=== PATIENT | female | born 1995 | race Caucasian/White ===

== ENCOUNTER 2020-08-13 22:31 | Emergency (ER) | payer MEDICAID, SELFPAY ==
--- NOTE | 2020-08-13 22:51 | ED.GENADUL_ITS ---
Discharge Plan Disposition Patient Disposition: HOME Condition: Stable Discharge Details Clinical Impression: UTI (urinary tract infection), Creatinine elevation Primary Care Provider: Unknown,Unknown ED Provider: Yakelin Wyman Home Meds and New Rx's Prescriptions: New ciprofloxacin HCl [Cipro] 250 mg tablet 250 mg PO BID 2 Days Qty: 4 RF: 0 Continued ZUK-hjxf-OV-omega 3-fat com #1 27-1-300 mg Capsule 1 cap PO DAILY RF: 0 Discharge Instructions Instructions: Ciprofloxacin (By mouth), Urinary Tract Infection in Women (ED) Additional Instructions: You are not currently . However, your work-up today is concerning for urinary tract infection. Please take the antibiotics as prescribed. Even if symptoms improve, please take the entire course. Please call [facility] wellness tomorrow to schedule follow-up appointment to discuss continued care. Referral for local primary care has also been sent. If you develop fever/chills, increased abdominal discomfort or other new/worsening symptoms please seek care urgently once again. Referrals: Maria G Palomino MD [ [facility] STAFF PHYSICIAN] - Discharge Data Discharge Date/Time-TO BE ENTERED AT DEPARTURE: 08/14/20 00:45 Medical Decision Making Patient is a pleasant 24-year-old female, , estimated 2 months gestation, presenting today with c/c of cramping and vaginal bleeding. Three previous spontaneous abortions. Patient does not receive routine obstetrical care and has never had a Pap smear before. States that she began having some spotting 2 days ago. Had 1 brief episode lasting proxy 1 hour where she had increased bleeding, similar to my period. Unknown LMP. At most, patient states that she changed her pad twice throughout the day. She denies any fevers or chills. Denies any nausea or vomiting. No change in bowel habits. Reports increased frequency of urination but attributes this to increased water intake. Patient is an active smoker. Is taking a vitamin. Patient is new to the area. On exam, patient appears nontoxic. Abdomen significant for low central abdominal discofmrot. No peritoneal fidings. UPT negative. Despite this, patient states she has had a multitude of positive home tests, will obtain quant and prepare for concern for spontaneous . Also considered ectopic but given negative UPT, this is less iikely. Labs reviewed. Patient does have a white count of 14. Creatinine elevated at 1.2. Quantitative hCG less than 1. Urinalysis concerning for elevated specific gravity, positive nitrite and elevated WBCs. Discussed these findings with the patient. She does note that about not active ly been . Will refer her to women's wellness for continued management. I did offer vaginal exam but she has declined this at this time. Would prefer to follow-up with [facility]. We also discussed further evaluation of her abdominal pain in including imaging but she also has declined. We will also refer to local primary care for routine follow-up. With the patient's urgency, leukocytosis and findings with UA, plan to treat for UTI. Return precautions were discussed. Patient is aware that she may return anytime for any continued care. All of her quesitons and cocnerns were addressed, sh eis in agreement with this plan. HPI General Mode of arrival: ambulatory . Date/Time Provider Initiated Documentation: 08/13/20 22:38 . Limitations to Documentation: no limitations . Information obtained by: patient and RN notes reviewed . History of Present Illness 24 year old F presents to the emergency department with the chief complaint of cramping and bleeding in first trimester, described as moderate, Quality is described as aching, and is localized to the abdomen. Patient reports no radiation. Patient started experiencing this day(s) (2) and it has been intermittent. No relieving factors improve symptom(s), No exacerbating factors reported . Patient notes denies chest pain, diaphoresis, fever/chills, loss of appetite, nausea/vomiting, shortness of breath and weakness. Patient did receive the following treatments prior to arrival, none Related Data Home Medications Medication Instructions Recorded Confirmed SJS-zkit-JO-omega 3-fat com #1 1 cap PO DAILY 08/13/20 08/13/20 ciprofloxacin HCl [Cipro] 250 mg PO BID 2 Days #4 tab 08/14/20 Previous Rx's Medication Instructions Recorded ciprofloxacin HCl [Cipro] 250 mg PO BID 2 Days #4 tab 08/14/20 Allergies Allergy/AdvReac Type Severity Reaction Status Date / Time Penicillins Allergy Severe Anaphylaxis Unverified 08/14/20 07:10 Review of Systems Constitutional Constitutional: Reports as per HPI, Denies chills, Denies fatigue, Denies fever(s) and Denies headache(s) ENT Ears, Nose, Mouth, and Throat: Denies headache(s) Cardiovascular Cardiovascular: Reports as per HPI, Denies chest pain and Denies dyspnea Respiratory Respiratory: Reports as per HPI, Denies cough and Denies dyspnea Gastrointestinal Gastrointestinal: Reports as per HPI Genitourinary Genitourinary: Reports as per HPI Musculoskeletal Musculoskeletal: Reports as per HPI and Denies back pain Integumentary/Breasts Skin/Breast: Reports as per HPI and Denies rash Neurologic Neurologic: Reports as per HPI and Denies headache(s) Endocrine Endocrine: Denies fatigue [facility] Medical History (Updated 08/14/20 @ 00:32 by BILLY Asher) Anxiety Depression Social History Smoking/Tobacco Use Status: Current every day Tobacco Type: cigarettes Smoking risk assessment performed?: Yes Alcohol Intake: never Substance use type: does not use Do you feel safe at home: Yes Do you feel safe in your relationship?: Yes Exam Const General: cooperative, healthy appearing, comfortable, no acute distress and well developed Nutritional Appearance: well nourished and obese Orientation: alert and awake HENMT Head: normal to inspection Mouth: moist mucous membranes Resp Effort & Inspection: normal respiratory effort, able to speak in complete sentences and no respiratory distress Auscultation: clear to auscultation bilaterally, no rales, no rhonchi and no wheezes Cardio Rate: regular rate Rhythm: regular rhythm Heart Sounds: S1 normal and S2 normal GI Inspection: normal to inspection Palpation: soft, no hepatosplenomegaly, not firm, no guarding, no pulsatile masses, not rigid and tender (low central abdomen) with no rebound tenderness Percussion: normal to percussion Auscultation: normal bowel sounds Back/Spine/Pelvis Back: no CVA tenderness Skin General skin exam: no rashes or lesions noted Trauma: no lacerations or abrasions Neuro General: patient alert and patient awake Cognition: normal cognition Speech: speech normal Gait: normal gait Psych Appearance: grossly normal and well kempt Mental Status: mental status grossly normal Speech and Movement: speech and movement normal
[2020-08-13 23:06] VITALS: BP 129/91; PULSE 119; RESP 20; TEMP 36.8; O2SAT 98
[2020-08-13 23:25] LABS: Bilirubin Negative (Negative); Blood Large (Negative); Clarity Sl Cloudy (Clear); Glucose Negative (Negative); Ketones Negative (Negative); Leukocyte Esterase Negative (Negative); Nitrite Positive (Negative); Specific Gravity >= 1.030 (1.005-1.025); Urobilinogen 0.2 EU/dL (Up TO 0.2)
[2020-08-13 23:34] LABS: Bacteria Many HPF (Negative); C & S Indicated? No/Sq. Contamination; Crystals Negative HPF (Negative); Epithelial Cells Many HPF (Negative); Mucus Negative (Negative); RBC 20-50 HPF (0-2); WBC 20-50 HPF (0-5)
[2020-08-13 23:41] LABS: Abs Immature Grans 0.05 10^3/uL (0.0-0.06); Absolute Basophil Count 0.08 10^3/uL (0.0-0.2); Absolute Monocyte Count 0.95 10^3/uL (0.1-0.8); Basophils % 0.6; Eosinophils % 1.1; HCT 45.8 % (36.0-46.0); HGB 15.4 g/dL (11.2-15.7); Immature Grans % 0.4; Lymphocytes % 30.7; MCH 28.8 pg (27.0-33.0); MCHC 33.6 % (32.0-36.0); MCV 85.8 fL (80-95); MPV 9.8 fL (8.0-11.0); Monocytes % 6.7; Neutrophils % 60.5; Nucleated RBC 0 %; Platelet Count 363 10^3/uL (130-400); RBC 5.34 10^6/uL (3.93-5.22); RDW 12.6 % (11.7-14.6); WBC 14.15 10^3/uL (4.4-10.8)
[2020-08-13 23:43] LABS: Absolute Eosinophil Count 0.16 10^3/uL (0.0-0.7); Absolute Lymphocyte Count 4.34 10^3/uL (1.2-3.4); Absolute Neutrophil Count 8.56 10^3/uL (1.2-6.7)
[2020-08-13 23:56] LABS: ALT 23 U/L (14-59); AST 9 U/L (15-37); Albumin 3.9 g/dL (3.4-5.0); Alkaline Phosphatase 84 U/L (46-116); Anion Gap 10.3 mmol/L (3-11); BUN 16 mg/dL (7-18); Bilirubin, Total 0.3 mg/dL (0.2-1.0); CO2 25.7 mmol/L (21.0-32.0); CREATININE 1.2 mg/dL (0.55-1.02); Calcium 9.2 mg/dL (8.5-10.1); Chloride 105 mmol/L (98-107); Estimated GFR 54.74 (mL/min/1.73m2); Glucose 103 mg/dL (74-106); Potassium 3.8 mmol/L (3.5-5.1); Sodium 141 mmol/L (136-145); Total Protein 8.3 g/dL (6.4-8.2)
[2020-08-14 00:17] LABS: HCG Quant, Pregnancy < 1 mIU/mL (1-3)
--- NOTE | 2020-08-14 00:38 | NUR.NOTE ---
Nursing Note: NEEDS EST FOR PCP AND [facility] FOLLOW UP 08/14/20
[2020-08-14] MEDS: Ciprofloxacin 250 MG TAB PO ×2 (00:42→00:43)
[2020-08-14 00:43] VITALS: BP 115/78; PULSE 100; RESP 18; O2SAT 100
== END 2020-08-14 00:45 | disposition home or self-care (01) ==
PROVIDERS: Emergency Provider Physician Assistant
DX: N39.0 Urinary tract infection, site not specified (principal); R79.89 Other specified abnormal findings of blood chemistry
CPT/HCPCS: 80053; 81025; 86850; 86900; 86901; 99283; 81003; 81015; 84702; 85025

== ENCOUNTER 2020-08-21 21:57 | Emergency (ER) | payer MEDICAID, SELFPAY ==
[2020-08-21 22:29] VITALS: BP 125/90; PULSE 111; RESP 18; TEMP 36.6; O2SAT 98
[2020-08-21 22:44] LABS: Abs Immature Grans 0.03 10^3/uL (0.0-0.06); Absolute Basophil Count 0.06 10^3/uL (0.0-0.2); Absolute Eosinophil Count 0.18 10^3/uL (0.0-0.7); Absolute Lymphocyte Count 3.91 10^3/uL (1.2-3.4); Absolute Monocyte Count 0.91 10^3/uL (0.1-0.8); Absolute Neutrophil Count 6.17 10^3/uL (1.2-6.7); Basophils % 0.5; Eosinophils % 1.6; HCT 42.8 % (36.0-46.0); HGB 14.4 g/dL (11.2-15.7); Immature Grans % 0.3; Lymphocytes % 34.7; MCHC 33.6 % (32.0-36.0); MCV 86.1 fL (80-95); MPV 9.7 fL (8.0-11.0); Monocytes % 8.1; Neutrophils % 54.8; Nucleated RBC 0 %; Platelet Count 353 10^3/uL (130-400); RBC 4.97 10^6/uL (3.93-5.22); RDW 12.6 % (11.7-14.6); RDW-SD 39.2 fL; WBC 11.26 10^3/uL (4.4-10.8)
[2020-08-21 22:55] LABS: Prothrombin Time 9.9 sec (9.3-11.0)
[2020-08-21 23:01] LABS: ALT 21 U/L (14-59); AST 7 U/L (15-37); Albumin 3.3 g/dL (3.4-5.0); Alkaline Phosphatase 88 U/L (46-116); BUN 8 mg/dL (7-18); Bilirubin, Total 0.2 mg/dL (0.2-1.0); CREATININE 1.1 mg/dL (0.55-1.02); Calcium 8.7 mg/dL (8.5-10.1); Chloride 107 mmol/L (98-107); Glucose 123 mg/dL (74-106); Potassium 4.1 mmol/L (3.5-5.1); Sodium 144 mmol/L (136-145); Total Protein 7.6 g/dL (6.4-8.2)
[2020-08-21 23:13] VITALS: BP 126/74; BP 130/80; BP 135/85
[2020-08-21] MEDS: Ibuprofen 800 MG TAB PO (23:13)
[2020-08-21 23:16] LABS: HCG Quant, Pregnancy < 1 mIU/mL (1-3)
--- NOTE | 2020-08-21 23:22 | W.ED.GENAD ---
Discharge Plan Disposition Patient Disposition: HOME Condition: Stable Discharge Details Clinical Impression: Heavy menses Primary Care Provider: Unknown,Unknown ED Provider: Ene Marin Home Meds and New Rx's Prescriptions: No Action LKE-vbnr-CQ-omega 3-fat com #1 27-1-300 mg Capsule 1 cap PO DAILY RF: 0 Discharge Instructions Instructions: Menorrhagia (ED) Additional Instructions: use ibuprofen 800 mg 3 times daily with food for 5 days. drink 6-8 glasses of water daily to stay well hydrated. Referrals: Alanna Russell DO [OSTEOPATHIC DOCTOR] - (tomorrow for evaluation) Discharge Data Discharge Date/Time-TO BE ENTERED AT DEPARTURE: 08/21/20 23:35 Medical Decision Making patient returns with reports of heavy menstrual bleeding greater than one week. did not follow up outpatient as instructed. will repeat labs, check serum hcg. she is tachy on presentation but was noted to be anxious and has just exerted self getting to stretcher. orthostatics obtained and are unremarkable. tachycardia resolved with rest. labs reviewed and are stable. she declines pelvic exam and abdominal exam is benign. she is safe for discharge to home and will be referred to [facility], message left with case management to facilitate appointment. she was instructed to return sooner for new or worsening symptoms. Medical Records Medical records reviewed: Yes I reviewed the patient's medical records. Lab Data Lab results reviewed: Yes I reviewed the patient's lab results. Lab results narrative: Laboratory Tests Range/Units 08/21/20 08/21/20 08/21/20 22:39 22:39 22:39 WBC (4.4-10.8) 10^3/uL 11.26 H RBC (3.93-5.22) 10^6/uL 4.97 Hgb (11.2-15.7) g/dL 14.4 Hct (36.0-46.0) % 42.8 MCV (80-95) fL 86.1 MCH (27.0-33.0) pg 29.0 MCHC (32.0-36.0) % 33.6 RDW (11.7-14.6) % 12.6 Plt Count (130-400) 10^3/uL 353 MPV (8.0-11.0) fL 9.7 Immature Gran % 0.3 Neutrophils % 54.8 Lymphocytes % 34.7 Monocytes % 8.1 Eosinophils % 1.6 Basophils % 0.5 Nucleated RBC % % 0 Absolute Neutrophils (1.2-6.7) 10^3/uL 6.17 Absolute Lymphocytes (1.2-3.4) 10^3/uL 3.91 H Absolute Monocytes (0.1-0.8) 10^3/uL 0.91 H Absolute Eosinophils (0.0-0.7) 10^3/uL 0.18 Absolute Basophils (0.0-0.2) 10^3/uL 0.06 PT (9.3-11.0) sec 9.9 INR (0.9-1.1) 1.0 Sodium (136-145) mmol/L Potassium (3.5-5.1) mmol/L Chloride (98-107) mmol/L Carbon Dioxide (21.0-32.0) mmol/L Anion Gap (3-11) mmol/L BUN (7-18) mg/dL Creatinine (0.55-1.02) mg/dL Estimated GFR/1.73 m2 (mL/min/1.73m2) Glucose (74-106) mg/dL Calcium (8.5-10.1) mg/dL Total Bilirubin (0.2-1.0) mg/dL AST (15-37) U/L ALT (14-59) U/L Alkaline Phosphatase (46-116) U/L Total Protein (6.4-8.2) g/dL Albumin (3.4-5.0) g/dL Beta HCG, Quant (1-3) mIU/mL < 1 L Range/Units 08/21/20 22:39 WBC (4.4-10.8) 10^3/uL RBC (3.93-5.22) 10^6/uL Hgb (11.2-15.7) g/dL Hct (36.0-46.0) % MCV (80-95) fL MCH (27.0-33.0) pg MCHC (32.0-36.0) % RDW (11.7-14.6) % Plt Count (130-400) 10^3/uL MPV (8.0-11.0) fL Immature Gran % Neutrophils % Lymphocytes % Monocytes % Eosinophils % Basophils % Nucleated RBC % % Absolute Neutrophils (1.2-6.7) 10^3/uL Absolute Lymphocytes (1.2-3.4) 10^3/uL Absolute Monocytes (0.1-0.8) 10^3/uL Absolute Eosinophils (0.0-0.7) 10^3/uL Absolute Basophils (0.0-0.2) 10^3/uL PT (9.3-11.0) sec INR (0.9-1.1) Sodium (136-145) mmol/L 144 Potassium (3.5-5.1) mmol/L 4.1 Chloride (98-107) mmol/L 107 Carbon Dioxide (21.0-32.0) mmol/L 28.0 Anion Gap (3-11) mmol/L 9.0 BUN (7-18) mg/dL 8 Creatinine (0.55-1.02) mg/dL 1.1 H Estimated GFR/1.73 m2 (mL/min/1.73m2) >= 60.00 Glucose (74-106) mg/dL 123 H Calcium (8.5-10.1) mg/dL 8.7 Total Bilirubin (0.2-1.0) mg/dL 0.2 AST (15-37) U/L 7 L ALT (14-59) U/L 21 Alkaline Phosphatase (46-116) U/L 88 Total Protein (6.4-8.2) g/dL 7.6 Albumin (3.4-5.0) g/dL 3.3 L Beta HCG, Quant (1-3) mIU/mL HPI General Mode of arrival: ambulatory. Date/Time Provider Initiated Documentation: 08/21/20 22:00. Limitations to Documentation: no limitations. Information obtained by: patient. HPI Narrative: presents with c/o heavy menstrual period for past 2 weeks. states she has been eating and drinking well, no fevers. some abdominal cramping. using tylenol for pain Related Data Home Medications Medication Instructions Recorded Confirmed HCO-hrqc-GJ-omega 3-fat com #1 1 cap PO DAILY 08/13/20 08/21/20 Allergies Allergy/AdvReac Type Severity Reaction Status Date / Time Penicillins Allergy Severe Anaphylaxis Unverified 08/21/20 22:35 General Stated Complaint: [employer] HOST HARIKA: 3 Review of Systems Constitutional Constitutional: Denies fever(s) ENT Ears, Nose, Mouth, and Throat: Denies vertigo and Denies dizziness Cardiovascular Cardiovascular: Denies chest pain and Reports lightheadedness Respiratory Respiratory: Denies cough Gastrointestinal Gastrointestinal: Denies abdominal pain, Reports cramping and Denies nausea Genitourinary Genitourinary: Reports abnormal vaginal bleeding, Reports menorrhagia, Denies pelvic pain, Denies urinary incontinence, Denies urinary hesitancy, Denies urinary urgency and Denies vaginal discharge Musculoskeletal Musculoskeletal: Denies back pain Integumentary/Breasts Skin/Breast: Denies lesions and Denies rash Neurologic Neurologic: Denies confusion, Denies vertigo and Denies dizziness Psychiatric Psychiatric: Denies confusion [facility] Medical History (Updated 08/21/20 @ 23:29 by Ene Marin NP) Anxiety Depression Social History Smoking/Tobacco Use Status: Current every day Tobacco Type: cigarettes Smoking risk assessment performed?: Yes Alcohol Intake: never Drug use: Never Substance use type: does not use Do you feel safe at home: Yes Do you feel safe in your relationship?: Yes Exam Const General: cooperative, healthy appearing and comfortable Nutritional Appearance: obese Orientation: alert, awake and oriented x3 HENMT Head: normal to inspection, normocephalic and atraumatic Mouth: oral mucosae normal Resp Effort & Inspection: normal respiratory effort Auscultation: clear to auscultation bilaterally Cardio Rate: regular rate Rhythm: regular rhythm GI Inspection: normal to inspection Auscultation: normal bowel sounds Skin General skin exam: no rashes or lesions noted Neuro General: patient alert, patient awake and patient oriented x3 Cognition: normal cognition Speech: speech normal Extrem General: normal to inspection and full ROM Course Vital Signs Vital signs: Vital Signs Temperature 36.6 C 08/21/20 22:29 Pulse 111 H 08/21/20 22:29 Respiratory Rate 18 08/21/20 22:29 Blood Pressure 125/90 08/21/20 22:29 Pulse Oximetry 98 08/21/20 22:29 Temperature 36.6 C 08/21/20 22:29 Temperature Source Oral 08/21/20 22:29 Pulse 111 H 08/21/20 22:29 Respiratory Rate 18 08/21/20 22:29 Respiratory Effort Non-Labored 08/21/20 22:35 Blood Pressure 125/90 08/21/20 22:29 Blood Pressure Position Sitting 08/21/20 22:29 Pulse Oximetry 98 08/21/20 22:29 Oxygen Delivery Method Room Air 08/21/20 22:29 Oxygen Flow Rate 0 08/21/20 22:29 Pain Level 8 08/21/20 22:35 Lab/Test Results Lab/Test Results: Laboratory Tests Range/Units 08/21/20 08/21/20 08/21/20 22:39 22:39 22:39 WBC (4.4-10.8) 10^3/uL 11.26 H RBC (3.93-5.22) 10^6/uL 4.97 Hgb (11.2-15.7) g/dL 14.4 Hct (36.0-46.0) % 42.8 MCV (80-95) fL 86.1 MCH (27.0-33.0) pg 29.0 MCHC (32.0-36.0) % 33.6 RDW (11.7-14.6) % 12.6 Plt Count (130-400) 10^3/uL 353 MPV (8.0-11.0) fL 9.7 Immature Gran % 0.3 Neutrophils % 54.8 Lymphocytes % 34.7 Monocytes % 8.1 Eosinophils % 1.6 Basophils % 0.5 Nucleated RBC % % 0 Absolute Neutrophils (1.2-6.7) 10^3/uL 6.17 Absolute Lymphocytes (1.2-3.4) 10^3/uL 3.91 H Absolute Monocytes (0.1-0.8) 10^3/uL 0.91 H Absolute Eosinophils (0.0-0.7) 10^3/uL 0.18 Absolute Basophils (0.0-0.2) 10^3/uL 0.06 PT (9.3-11.0) sec 9.9 INR (0.9-1.1) 1.0 Sodium (136-145) mmol/L Potassium (3.5-5.1) mmol/L Chloride (98-107) mmol/L Carbon Dioxide (21.0-32.0) mmol/L Anion Gap (3-11) mmol/L BUN (7-18) mg/dL Creatinine (0.55-1.02) mg/dL Estimated GFR/1.73 m2 (mL/min/1.73m2) Glucose (74-106) mg/dL Calcium (8.5-10.1) mg/dL Total Bilirubin (0.2-1.0) mg/dL AST (15-37) U/L ALT (14-59) U/L Alkaline Phosphatase (46-116) U/L Total Protein (6.4-8.2) g/dL Albumin (3.4-5.0) g/dL Beta HCG, Quant (1-3) mIU/mL < 1 L Range/Units 08/21/20 22:39 WBC (4.4-10.8) 10^3/uL RBC (3.93-5.22) 10^6/uL Hgb (11.2-15.7) g/dL Hct (36.0-46.0) % MCV (80-95) fL MCH (27.0-33.0) pg MCHC (32.0-36.0) % RDW (11.7-14.6) % Plt Count (130-400) 10^3/uL MPV (8.0-11.0) fL Immature Gran % Neutrophils % Lymphocytes % Monocytes % Eosinophils % Basophils % Nucleated RBC % % Absolute Neutrophils (1.2-6.7) 10^3/uL Absolute Lymphocytes (1.2-3.4) 10^3/uL Absolute Monocytes (0.1-0.8) 10^3/uL Absolute Eosinophils (0.0-0.7) 10^3/uL Absolute Basophils (0.0-0.2) 10^3/uL PT (9.3-11.0) sec INR (0.9-1.1) Sodium (136-145) mmol/L 144 Potassium (3.5-5.1) mmol/L 4.1 Chloride (98-107) mmol/L 107 Carbon Dioxide (21.0-32.0) mmol/L 28.0 Anion Gap (3-11) mmol/L 9.0 BUN (7-18) mg/dL 8 Creatinine (0.55-1.02) mg/dL 1.1 H Estimated GFR/1.73 m2 (mL/min/1.73m2) >= 60.00 Glucose (74-106) mg/dL 123 H Calcium (8.5-10.1) mg/dL 8.7 Total Bilirubin (0.2-1.0) mg/dL 0.2 AST (15-37) U/L 7 L ALT (14-59) U/L 21 Alkaline Phosphatase (46-116) U/L 88 Total Protein (6.4-8.2) g/dL 7.6 Albumin (3.4-5.0) g/dL 3.3 L Beta HCG, Quant (1-3) mIU/mL
[2020-08-21 23:27] VITALS: PULSE 96
--- NOTE | 2020-08-22 01:22 | NUR.NOTE ---
Referral faxed to [facility] to f/u 08/22/20 for abnormally heavy menstrual bleeding.Nursing Note:
== END 2020-08-21 23:35 | disposition home or self-care (01) ==
PROVIDERS: Emergency Provider Nurse Practitioner Acute Care
DX: N92.0 Excessive and frequent menstruation with regular cycle (principal)
CPT/HCPCS: 36415; 80053; 99283; 84702; 85025; 85610

== ENCOUNTER 2021-07-27 16:42 | Emergency (ER) | payer MEDICAID, SELFPAY ==
[2021-07-27 16:55] VITALS: BP 116/76; PULSE 105; RESP 20; TEMP 36.8; O2SAT 97
--- NOTE | 2021-07-27 17:26 | ED.GENADUL_ITS ---
Discharge Plan Disposition Patient Disposition: HOME Condition: Stable Discharge Details Clinical Impression: Acute viral syndrome, Bronchitis Primary Care Provider: Unknown,Unknown ED Provider: Jennifer Gonzales Home Meds and New Rx's Prescriptions: Continued ICI-dnxk-XS-omega 3-fat com #1 27-1-300 mg Capsule 1 cap PO DAILY Discharge Instructions Instructions: Acute Bronchitis (ED), Viral Syndrome (ED) Additional Instructions: You have COVID and flu test pending, you should not return to work until these tests are negative and you are fever free for greater than 24 hours You take ibuprofen and Tylenol as needed for fever You will receive a dose of steroid upon departure, the follow-up 3 days for wheezing and shortness of breath Use your inhaler, 2 puffs every 4-6 hours, always use your spacer you will not get the appropriate dose of this medication Please return should you have new or worsening complaints Stand Alone Forms: Work Release Discharge Data Discharge Date/Time-TO BE ENTERED AT DEPARTURE: 07/27/21 17:37 Medical Decision Making Patient with negative COVID, flu, RSV Suspect viral etiology, lungs clear to auscultation, no hypoxia No respiratory distress Patient was referred back to PCP Given steroid and albuterol as needed for shortness of breath Return precautions discussed and patient expressed understanding Medical Records Medical records reviewed: Yes I reviewed the patient's medical records. HPI General Date/Time Provider Initiated Documentation: 07/27/21 16:58 . HPI Narrative: This 25-year-old female presents with report of cough, shortness of breath, and fever, T-max 101 at home. States she has had numerous sick contact with a positive COVID test. 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 Her fianc? reportedly had COVID 3 weeks ago. She denies any hemoptysis. She denies any asthma history. She does not smoke tobacco but is cutting down. She denies any calf pain or swelling, recent flights, surgeries, long drives. She does have a productive cough with patient denies chance of . Denies any chest pain. Related Data Home Medications Medication Instructions Recorded Confirmed ZMK-ntas-XH-omega 3-fat com #1 27 1 cap PO DAILY 08/13/20 08/21/20 mg-1 mg-300 mg capsule Allergies Allergy/AdvReac Type Severity Reaction Status Date / Time Penicillins Allergy Severe Anaphylaxis Unverified 07/27/21 17:00 tomatoes Allergy Uncoded 07/27/21 17:01 General Stated Complaint: RespSymp HARIKA: 3 Review of Systems All systems reviewed & are unremarkable except as noted in HPI and below PFSH All Active Problems (Updated 07/27/21 @ 17:23 by BILLY Majano) UTI (urinary tract infection) (Acute) Creatinine elevation (Acute) Heavy menses (Acute) Acute viral syndrome (Acute) Bronchitis (Acute) Medical History (Updated 07/27/21 @ 17:23 by BILLY Majano) Anxiety Depression Social History Smoking/Tobacco Use Status: Current every day Tobacco Type: cigarettes Smoking risk assessment performed?: Yes Alcohol Intake: current Alcohol Intake frequency: holidays/special occasions only Drug use: Never Substance use type: does not use Do you feel safe at home: Yes Do you feel safe in your relationship?: Yes Exam Const General: cooperative, comfortable and no acute distress Eyes Pupils: PERRL Chest Chest: normal inspection of the chest Resp Effort & Inspection: normal respiratory effort Auscultation: clear to auscultation bilaterally Cardio Rate: regular rate Rhythm: regular rhythm Skin General skin exam: no rashes or lesions noted Neuro General: patient alert and patient oriented x3 Extrem Other: No calf swelling or tenderness, distal pulses intact Course Vital Signs Vital signs: Vital Signs Temperature 36.8 C 07/27/21 16:55 Pulse 105 H 07/27/21 16:55 Respiratory Rate 20 07/27/21 16:55 Blood Pressure 116/76 07/27/21 16:55 Pulse Oximetry 97 07/27/21 16:55 Temperature 36.8 C 07/27/21 16:55 Temperature Source Oral 07/27/21 16:55 Pulse 105 H 07/27/21 16:55 Respiratory Rate 20 07/27/21 16:55 Respiratory Effort 07/27/21 16:55 Blood Pressure 116/76 07/27/21 16:55 Blood Pressure Position Sitting 07/27/21 16:55 Pulse Oximetry 97 07/27/21 16:55 Oxygen Delivery Method Room Air 07/27/21 16:55 Oxygen Flow Rate 0 07/27/21 16:55 Pain Level 8 07/27/21 16:55
[2021-07-27] MEDS: Dexamethasone 10 MG/ML VIAL IVP (17:30)
[2021-07-27] MEDS: Albuterol HFA 8 GM 60 PUFF INH IH (17:31)
[2021-07-27] MEDS: Inhaler, Assist Device 1 EACH MC (17:31)
[2021-07-27 18:20] LABS: COVID-19 PCR Negative (Negative); Influenza A PCR Negative (Negative); Influenza B PCR Negative (Negative); RSV PCR Negative (Negative)
[2021-07-27 18:26] LABS: Source Nasopharynx
== END 2021-07-27 17:37 | disposition home or self-care (01) ==
PROVIDERS: Emergency Provider Physician Assistant
DX: B34.9 Viral infection, unspecified (principal); J20.9 Acute bronchitis, unspecified; Z20.822 Contact with and (suspected) exposure to COVID-19
CPT/HCPCS: 87637; 99283; J1100

== ENCOUNTER → 2021-07-29 16:32 | Outpatient (CLI) | payer MEDICAID, SELFPAY ==
--- NOTE | 2021-07-29 14:34 | DI.RAD_ITS ---
Exam(s) XR CHEST 2V PA LATERAL EXAM: XR CHEST 2V PA LATERAL CLINICAL HISTORY: COUGH -- R05.8. TECHNIQUE: 2D digital imaging was performed. COMPARISON: No exams were available for comparison FINDINGS: 2 views: Heart size is normal. The mediastinum is not widened. Lungs are clear. No infiltrates nor pleural effusions. IMPRESSION: No acute pulmonary findings. DATA REPOSITORY: RADIATION DOSE DELIVERED:
== END ==
PROVIDERS: Visit Provider Nurse Practitioner Family
DX: R05.8 Other specified cough (principal)
CPT/HCPCS: 71046

== ENCOUNTER 2024-02-21 14:23 | Emergency (ER) | payer MEDICAID, SELFPAY ==
--- NOTE | 2024-02-21 14:36 | W.ED.GENAD ---
Discharge Plan Disposition Patient Disposition: Home Discharge Details Clinical Impression: Opiate withdrawal Primary Care Provider: None,None ED Provider: Omar Mello Home Meds and New Rx's Prescriptions: New buprenorphine-naloxone 12-3 mg film 1 film buccal Q24H Qty: 30 0RF No Action [id number] 3-fat com #1 27-1-300 mg Capsule 1 cap PO DAILY Discharge Instructions Additional Instructions: You are seen in the emergency department for your opiate use. Thank you for coming in as you were treated for withdrawal. Please follow-up with the resources from the motorcoach operator. Please take this prescription once a day as directed. Discharge Data Discharge Date/Time-TO BE ENTERED AT DEPARTURE: 02/21/24 18:32 HPI General Date/Time Provider Initiated Documentation: 02/21/24 14:29. HPI Narrative: MDM This is a tachycardic but normothermic 28-year-old female with dilated pupils nausea vomiting and goosebumps concerning for opiate withdrawal for which patient will receive treatment with buprenorphine/naloxone given her COWS score of 14. No ethanol use to suggest ethanol withdrawal. I considered sepsis however in the setting of withdrawal from opiates felt that sepsis was less likely as I did not feel that the patient required empiric treatment of blood cultures broad-spectrum antibiotics nor assessment of lactate. No exposures to sick contacts to suggest influenza. No pain out of proportion to suggest necrotizing soft tissue infection. No chest pain no history of IV drug use to suggest increased risk for endocarditis. Will reassess following 8 mg of buprenorphine in 30 minutes. 7:55 PM Patient's COWS score improved down to 11. Her heart rate normalized. She received a total of 20 mg of buprenorphine. She met with a motorcoach operator. She felt improved. She has a prescription for 60 mg buprenorphine sublingually daily. HPI This is a 28-year-old female with anxiety difficulty focusing and last fentanyl use 2 days ago requesting detox and recovery. Patient has remotely tried buprenorphine in the past and put herself in precipitated withdrawal. She generally smokes up to 3 g of fentanyl per day. Patient has had no routine medications. No routine ethanol. Patient denies IV drug use. Patient endorses chills and nausea but no vomiting. Exam General: Uncomfortable-appearing in no acute distress speaking in complete sentences. Head: Normocephalic, atraumatic. Eye: Extraocular eye movements intact. No conjunctival injection. No scleral icterus. Mildly dilated pupils 4 mm Ear, nose, mouth, throat: Grossly normal inspection. Normal voice, handling secretions normally. Neck: Trachea midline. Cardiovascular: Well-perfused distal extremities. Respiratory: Nonlabored respiration. Gastrointestinal: Nondistended abdomen. Musculoskeletal: No edema. Moving all 4 extremities spontaneously. Skin: Normal for age and race, grossly normal temperature and turgor. No acute rash. Gooseflesh present. Neurologic: Alert and appropriate, no apparent acute deficits. GCS 15. Mildly tremulous. Psychiatric: Mood and manner are appropriate. Grooming and personal hygiene are appropriate. Related Data Home Medications ?Medication ?Instructions ?Recorded ?Confirmed [id number] 3-fat com #1 27 1 cap PO DAILY 08/13/20 02/21/24 mg-1 mg-300 mg capsule buprenorphine 12 mg-naloxone 3 mg 1 film buccal Q24H #30 ea 02/21/24 sublingual film Previous Rx's ?Medication ?Instructions ?Recorded buprenorphine 12 mg-naloxone 3 mg 1 film buccal Q24H #30 ea 02/21/24 sublingual film Allergies Allergy/AdvReac Type Severity Reaction Status Date / Time Penicillins Allergy Severe Anaphylaxis Unverified 02/21/24 14:41 tomatoes Allergy Unknown Uncoded 02/21/24 14:41 General HARIKA: 3 Medical Decision Making Quality:SDOH Health Related Social Needs: No Data to Display PFSH All Active Problems (Updated 02/21/24 @ 15:20 by Omar Mello MD) Opiate withdrawal (Acute) Heavy menses (Acute) Creatinine elevation (Acute) UTI (urinary tract infection) (Acute) Medical History (Updated 02/21/24 @ 15:20 by Omar Mello MD) Depression Anxiety Social History Smoking/Tobacco Use Status: Current every day Tobacco Type: cigarettes Smoking risk assessment performed?: Yes Alcohol Intake: current Alcohol Intake frequency: holidays/special occasions only Drug use: Daily Substance use type: does not use Housing: homeless Do you feel safe at home: Yes Do you feel safe in your relationship?: Yes
[2024-02-21 14:39] VITALS: BP 156/111; PULSE 111; RESP 15; TEMP 36.7; O2SAT 99
[2024-02-21] MEDS: Buprenorphine/Naloxone 8 mg/2 mg FILM 1 EACH SL ×2 (15:20→16:36)
[2024-02-21 16:29] VITALS: PULSE 120
[2024-02-21] MEDS: Nicotine 4 MG GUM CH (16:37)
[2024-02-21 17:25] VITALS: PULSE 118; O2SAT 100
[2024-02-21] MEDS: Buprenorphine/Naloxone 4 mg/1 mg FILM 1 EACH SL (17:43)
[2024-02-21 18:12] VITALS: BP 156/88; PULSE 98; RESP 16; O2SAT 98
== END 2024-02-21 18:32 | disposition home or self-care (01) ==
PROVIDERS: Emergency Provider Emergency Medicine
DX: F11.23 Opioid dependence with withdrawal (principal); F17.210 Nicotine dependence, cigarettes, uncomplicated
CPT/HCPCS: 99283